=== PATIENT | male | born 1955 | race Two or more races ===

== ENCOUNTER → 2017-05-10 06:23 | Outpatient (CLI) | payer OTHER ==
[~2017-05-10 06:23] MED LIST: HYZAAR 100/25 T1 TAB PO; LIPITOR20 MG PO; LOPRESSOR HCT 51 TAB; LOPRESSOR HCT 51 TAB PO; LOPRESSOR HCT PO; Lantus 1000 U/10 ML SUBCUTANEO; METFORMIN HCL500 MG PO; PLAVIX 75MG PO; PLAVIX75 MG; PLAVIX75 MG PO; SYNTHROID100 MCG; SYNTHROID100 MCG PO; SYNTHROID75 MCG; Synthroid PO; TOPROL XL50 M1 PO; Toprol Xl 50MG TAB PO; VASOTEC PO; VASOTEC2.5 MG; VASOTEC2.5 MG PO; VASOTEC5 MG; ZOCOR40 MG PO; [UNRECOGNIZED DRUG - OTHER] PO
== END | disposition home or self-care (01) ==
LOC: LAB 06:23
DX: I25.10 Atherosclerotic heart disease of native coronary artery without angina pectoris (principal); E11.8 Type 2 diabetes mellitus with unspecified complications; E78.2 Mixed hyperlipidemia; I11.9 Hypertensive heart disease without heart failure; E03.9 Hypothyroidism, unspecified; E56.8 Deficiency of other vitamins

== ENCOUNTER → 2018-05-31 | Outpatient (CLI) | payer OTHER | END | disposition home or self-care (01) | LOC: RAD 501 09:24 | DX: I11.9 Hypertensive heart disease without heart failure (principal); R06.02 Shortness of breath ==